=== PATIENT | male | born 1940 | race Caucasian/White ===

== ENCOUNTER → 2016-07-26 | Outpatient (CLI) | payer MEDICARE, BC ==
[~2016-07-26] MED LIST: LEVAQUIN500 MG PO; NORVASC 5 MG TAB5 MG PO
== END ==
LOC: HEART 5 07-15 09:15 → ECHO 07-15 11:00 → HEART 5 07-16 09:00
DX: R06.02 Shortness of breath (principal); I10 Essential (primary) hypertension; R60.9 Edema, unspecified; I35.8 Other nonrheumatic aortic valve disorders
CPT/HCPCS: 93306

== ENCOUNTER → 2016-07-27 | Outpatient (CLI) | payer MEDICARE, BC | LOC: RAD 16:08 | DX: R06.01 Orthopnea (principal); N18.3 Chronic kidney disease, stage 3 (moderate); N25.81 Secondary hyperparathyroidism of renal origin | CPT/HCPCS: 36415; 71020; 83880 ==

== ENCOUNTER 2020-04-13 09:39 | Emergency (ER) | payer MEDICARE, BC ==
[~2020-04-13 09:39] MED LIST changes: +BACITRACIN TOP; +BUMETANIDE2 MG PO; +BUMEX 1MG TABLET1 MG GT; +CLARITIN10 MG PO; +COREG 3.125M3.125 MG PO; +CRESTOR10 MG PO; +DIAMOX 250 MG250 MG PO; +DULERA 100 MCG8.8 GM INH; +FEROSUL325 MG PO; +GLUCOTROL 10 MG10 MG PO; +HUMALOG100 UNIT/1 SQ; +HUMALOG100 UNIT/3 SC; +HUMALOG100 UNIT/3 SQ; +HYDRALAZINE HCL25 MG PO; +IMDUR ER TAB 3030 MG PO; +IPRAT-ALBUT 0.5-3 ML INH; +IPRAT-ALBUT 0.5-3 ML NEB; +K-TAB ER20 MEQ PO; +KLOR-CON M2020 MEQ PO; +LANTUS INS100 UTS/M1 SC; +LANTUS100 UNIT/1 SQ; +LASIX40 MG PO; +METOLAZONE5 MG PO; +PERCOCET 10-321 EACH PO; +PROAIR HFA8.5 GM INH; +ROCALTROL CA0.25 MCG PO; +TYLENOL 500 MG500 MG PO; +ULTRAM50 MG PO; +VITAMIN D325 MC6 PO; +ZAROXOLYN/DIULO5 MG PO
== END 2020-04-13 09:45 | disposition expired ==
LOC: ER1 09:39
DX: I46.9 Cardiac arrest, cause unspecified (principal); I13.0 Hypertensive heart and chronic kidney disease with heart failure and stage 1 through stage 4 chronic kidney disease, or unspecified chronic kidney disease; E11.22 Type 2 diabetes mellitus with diabetic chronic kidney disease; N18.9 Chronic kidney disease, unspecified; I50.9 Heart failure, unspecified; J44.9 Chronic obstructive pulmonary disease, unspecified; Z99.89 Dependence on other enabling machines and devices; Z87.891 Personal history of nicotine dependence; Z85.9 Personal history of malignant neoplasm, unspecified; Z89.112 Acquired absence of left hand; Z79.4 Long term (current) use of insulin; Z79.899 Other long term (current) drug therapy
CPT/HCPCS: 92950; 99285; J0171